=== PATIENT | male | born 1975 | race Caucasian/White ===

== ENCOUNTER 2021-01-10 14:19 | Emergency (ER) | payer OTHER, SELFPAY ==
--- NOTE | ~2021-01-10 | XR_ITS ---
EXAMINATION: XR CHEST CLINICAL INFORMATION: Shortness of breath, wheezing COMPARISON: None TECHNIQUE: 2 views of the chest were obtained. FINDINGS: The lungs are clear. There is no airspace consolidation or groundglass opacity or effusion. No coarsening of the bronchiolar markings. There is good inspiratory effort. The heart is normal in size and the hilar and mediastinal contours are normal. There is gentle dextrocurvature thoracic spine. XR/XR chest 2V IMPRESSION: Unremarkable examination.
[2021-01-10 15:43] VITALS: BP 119/80; PULSE 72; RESP 20; TEMP 36.4; O2SAT 99; BMI 22.6
[2021-01-10 15:53] LABS: MANUAL DIFF FLAG NO
[2021-01-10 15:57] LABS: Basophils Percent Auto 0.4 % (0-2); Eosinophils Absolute Auto 0.2 X10*3/uL (0.0-0.4); Hematocrit 40.1 % (42-52); Hemoglobin 12.7 g/dl (14.0-18.0); Imm Gran Abs Auto 0.02 X10*3/uL (0.00-0.03); Imm Gran Pct Auto 0.4 % (0.0-0.4); Lymphocytes Absolute Auto 1.3 X10*3/uL (1.2-4.9); Lymphocytes Percent Auto 25.3 % (20-40); Mean Corpuscular HGB Conc 31.7 g/dl (31.0-36.0); Mean Corpuscular Hemoglobin 20.8 pg (27.0-33.0); Mean Corpuscular Volume 65.6 fL (80-98); Mean Platelet Volume 11.6 fL (9.4-12.4); Monocytes Absolute Auto 0.5 X10*3/uL (0.1-1.2); Monocytes Percent Auto 9.3 % (2-11); Neutrophils Absolute Auto 3.1 X10*3/uL (2.0-8.3); Neutrophils Percent Auto 61.6 % (45-73); Platelet Count 194 X10*3/uL (160-400); Red Blood Count 6.11 X10*6/uL (4.60-5.80); Red Cell Distribution Width 17.6 % (11.0-16.0); White Blood Count 5.1 X10*3/uL (4.8-10.8)
[2021-01-10 16:29] LABS: Alanine Aminotransferase 16 U/L (0-40); Albumin Level 3.9 g/dL (3.5-5.0); Alkaline Phosphatase 76 U/L (39-117); Anion Gap 9 (12-20); Aspartate Amino Transferase 18 U/L (5-37); Bilirubin Total 0.6 mg/dL (0.0-1.0); Blood Urea Nitrogen 12 mg/dL (9-16); Calcium 9.3 mg/dL (8.4-10.2); Carbon Dioxide 28 mmol/L (22-29); Chloride 110 mmol/L (96-108); Creatinine Clr Calc Pharmacy 105.1; Estimated Glomerular Filt Rate > 60; Glucose Random 103 mg/dL (60-115); Potassium 4.6 mmol/L (3.3-5.1); Sodium 142 mmol/L (135-145); Total Protein 6.8 g/dL (6.5-8.0)
--- NOTE | 2021-01-10 18:16 | ED_ITS ---
HPI - SOB/Dyspnea General Chief Complaint: Dyspnea Stated Complaint: SOB,asthma Time Seen by Provider: 01/10/21 18:16 Source: patient, RN notes reviewed and old records reviewed Mode of arrival: ambulatory Limitations: no limitations History of Present Illness HPI Narrative: 45-year-old male with past medical history of asthma reports that he has been short of breath for last couple days. Tried his inhalers at home without any success. Denies any CP, reports mild shortness of breath and wheezing. Patient denies any seasonal allergies. Patient denies any other symptoms. Speaking in full sentences Related Data Previous Rx's Medication Instructions Recorded albuterol sulfate [ProAir HFA] 2 puff INHALATION Q6H PRN #8.5 g 01/10/21 prednisone 40 mg PO DAILY 5 Days #10 tab 01/10/21 Allergies Allergy/AdvReac Type Severity Reaction Status Date / Time No Known Allergies Allergy Verified 01/10/21 18:20 Review of Systems Review of Systems: Constitutional : No Weight loss, No Fever, No Chills, No Night Sweats, No Fatigue, No Malaise ENT/Mouth : No Hearing loss, No Ear Pain, No Nasal Congestion, No Sinus Pain, No Hoarseness, No sore throat, No Rhinorrhea, No Swallowing Difficulty Eyes: No Eye Pain, No Swelling, No Redness, No Foreign Body, No Discharge, No Vision Changes Cardiovascular : No Chest Pain, No SOB, No Dyspnea on Exertion, No Orthopnea, No Edema, No Palpitations Respiratory : No Cough, No Sputum, Wheezing, No Smoke Exposure, No Dyspnea Gastrointestinal : No Nausea, No Vomiting, No Diarrhea, No Constipation, No abdominal Pain, No Hematochezia, No Melena Genitourinary : no irregular bleeding, No Dysuria, No Urinary Frequency, No Hematuria, No Urinary Incontinence, No Urgency, No Flank Pain, No Urinary Flow Changes, No Hesitancy Musculoskeletal : No joint pain, No Myalgias, No Joint Swelling Skin : No Skin Lesions, No rash Neuro : No Weakness, No Numbness, No Paresthesias, No Loss of Consciousness, No Dizziness, No Headache Psych : No Anxiety/Panic, No Depression, No SI/HI/AH/VH, No Social Issues, Heme/Lymph: No Bruising, No Bleeding,No Lymphadenopathy Endocrine : No Polyuria, No Polydipsia, No Temperature Intolerance Yes all other systems are reviewed and are negative PMFSH Social History Social History Advance Directives: No Advance Directives Information Provided: Yes Physical Exam Vital Signs: Vital Signs: Last Vital Signs Temp 97.6 F 01/10/21 15:43 Pulse 72 01/10/21 19:27 Resp 20 01/10/21 15:43 BP 119/80 01/10/21 15:43 Pulse Ox 99 01/10/21 15:43 Body Mass Index 22.6 Const: General: healthy appearing, no acute distress and well developed Nutritional Appearance: well nourished Orientation/consciousness: patient oriented x3 Neck: Neck: Yes normal visual inspection, Yes full ROM and Yes trachea midline Thyroid: Thyroid normal Resp: Effort & Inspection: normal respiratory effort and able to speak in complete sentences Auscultation: wheezes (Inspiratory and expiratory) Cardio: Rate: regular rate Rhythm: regular rhythm GI: Inspection: Yes normal to inspection and No distended Palpation (GI): No hepatosplenomegaly present Auscultation: normal bowel sounds Skin: General skin exam: elasticity normal, turgor normal and dry skin Neuro: General: patient oriented x3 Course Course Course Narrative: 45-year-old male with past medical history of asthma. Took his inhaler at home without any help. Patient denies any SOB, reports to be wheezing. No recent exposures to COVID. Denies any fever or chills. I will give him nebulizer treatment and prednisone. Lab work negative for leukocytosis. Reevaluation(s) Reevaluation #1: Patient re-evaluated after treatment. He reports that he is feeling much better his lung sounds clear. I will send him home with albuterol inhaler and prednisone. Patient is agreeable to plan of care and verbalizes understanding of instructions. He was given the opportunity to ask questions and all questions answered. MDM - SOB/Dyspnea Lab Data Result diagrams: 01/10/21 15:41 01/10/21 15:41 Labs: Lab Results 01/10/21 01/10/21 Range/Units 15:41 15:41 WBC 5.1 (4.8-10.8) X10*3/uL RBC 6.11 H (4.60-5.80) X10*6/uL Hgb 12.7 L (14.0-18.0) g/dl Hct 40.1 L (42-52) % MCV 65.6 L (80-98) fL MCH 20.8 L (27.0-33.0) pg MCHC 31.7 (31.0-36.0) g/dl RDW 17.6 H (11.0-16.0) % Plt Count 194 (160-400) X10*3/uL MPV 11.6 (9.4-12.4) fL Immature Gran % (Auto) 0.4 (0.0-0.4) % Neut % (Auto) 61.6 (45-73) % Lymph % (Auto) 25.3 (20-40) % [place] % (Auto) 9.3 (2-11) % Eos % (Auto) 3.0 (0-4) % Baso % (Auto) 0.4 (0-2) % Lymph # (Auto) 1.3 (1.2-4.9) X10*3/uL [place] # (Auto) 0.5 (0.1-1.2) X10*3/uL Eos # (Auto) 0.2 (0.0-0.4) X10*3/uL Baso # (Auto) 0.0 (0.0-0.2) X10*3/uL Abs Immat Gran (auto) 0.02 (0.00-0.03) X10*3/uL Absolute Neuts (auto) 3.1 (2.0-8.3) X10*3/uL Absolute Nucleated RBC 0.000 (0.0-0.012) X10*3/uL Nucleated RBC % (auto) 0.0 (0.0-0.2) /100WBC Sodium 142 (135-145) mmol/L Potassium 4.6 (3.3-5.1) mmol/L Chloride 110 H (96-108) mmol/L Carbon Dioxide 28 (22-29) mmol/L Anion Gap 9 L (12-20) BUN 12 (9-16) mg/dL Creatinine 0.78 (0.5-1.4) mg/dL Estim Creat Clear Calc 105.1 Estimated GFR > 60 Random Glucose 103 (60-115) mg/dL Calcium 9.3 (8.4-10.2) mg/dL Total Bilirubin 0.6 (0.0-1.0) mg/dL AST 18 (5-37) U/L ALT 16 (0-40) U/L Alkaline Phosphatase 76 (39-117) U/L Total Protein 6.8 (6.5-8.0) g/dL Albumin 3.9 (3.5-5.0) g/dL Imaging Data Chest x-ray: Radiologist's impression: FINDINGS: The lungs are clear. There is no airspace consolidation or groundglass opacity or effusion. No coarsening of the bronchiolar markings. There is good inspiratory effort. The heart is normal in size and the hilar and mediastinal contours are normal. There is gentle dextrocurvature thoracic spine. XR/XR chest 2V IMPRESSION: Unremarkable examination. Discharge Plan Discharge Clinical Impression: Asthma with exacerbation Patient Disposition: Home, Self-Care Instructions: Asthma (ED) Additional Instructions: You were seen here today for asthma exacerbation. You were given albuterol updraft as well as prednisone. I will be sending you home with prednisone. Please take it 2 every day for the next 5 days. Please use your rescue inhaler and your nebulizer at home. Your blood work and your chest x-ray were normal. Please follow-up with your primary care physician in 3 days. You may return to emergency department if his symptoms return or if you experience any other concerning symptoms. Prescriptions: New prednisone 20 mg tablet 40 mg PO DAILY 5 Days Qty: 10 RF: 0 albuterol sulfate [ProAir HFA] 90 mcg/actuation HFA aerosol inhaler 2 puff inhalation Q6H PRN (Reason: shortness of breath or wheezing) Qty: 8.5 RF: 0 Stand Alone Forms: Work/School Release Interventions: ED Discharge Assessment Last Done: 01/10/21 20:04 Discharge Date/Time: 01/10/21 20:05
[2021-01-10] MEDS: predniSONE 20 MG TABLET 40 MG PO (18:56)
--- NOTE | 2021-01-10 19:20 | PC.NURSE ---
PT MED WITH PREDNISONE. CALLED RESP X 2 FOR UPDRAFT. PT AND FAMILY GIVEN COFFEE AND SANDWICHES.
[2021-01-10] MEDS: Albuterol/Iprat 2.5/0.5MG 3 ML AMPUL.NEB INHALE (19:26)
[2021-01-10 19:27] VITALS: PULSE 72; O2SAT 99
== END 2021-01-10 20:05 | disposition home or self-care (01) ==
PROVIDERS: Emergency Provider Internal Medicine
DX: J45.901 Unspecified asthma with (acute) exacerbation (principal); Z79.899 Other long term (current) drug therapy
CPT/HCPCS: 36415; 71046; 80053; 85025; 94640; 99284

== ENCOUNTER 2021-02-02 16:30 | Emergency (ER) | payer OTHER, SELFPAY ==
--- NOTE | ~2021-02-02 | XR_ITS ---
EXAMINATION: XR chest 1V CLINICAL INFORMATION: Asthma COMPARISON: No prior chest x-ray available in our system for comparison at the time of this dictation. TECHNIQUE: XR chest 1V Lungs and Mary: Both lungs are clear. Pleura: Normal. Costophrenic angles are sharp. No pneumothorax. Heart: The heart is normal in size. Mediastinum: The mediastinum is within normal limits.. Bones: An old left posterior lower rib fractures unchanged. XR/XR chest 1V IMPRESSION: No radiographic evidence of acute cardiopulmonary disease.
[2021-02-02 16:42] VITALS: BP 129/66; PULSE 100; RESP 16; TEMP 36.9; O2SAT 96; BMI 22.6
--- NOTE | 2021-02-02 19:20 | ED.ASTHMA ---
HPI - Asthma General Chief Complaint: Asthma Stated Complaint: asthma Time Seen by Provider: 02/02/21 19:20 Source: patient Mode of arrival: ambulatory Limitations: no limitations History of Present Illness HPI Narrative: Patient history of asthma/COPD been coughing a lot for last few days with shortness of breath no fever no chills mucopurulent phlegm greenish in color no chest pain no leg swelling patient has similar episodes multiple times in a year patient been using inhaler at home without much relief patient has not received COVID-19 vaccine yet Related Data Previous Rx's Medication Instructions Recorded albuterol sulfate [ProAir HFA] 2 puff INHALATION Q6H PRN #8.5 g 01/10/21 prednisone 40 mg PO DAILY 5 Days #10 tab 01/10/21 albuterol sulfate 2.5 mg INHALATION Q4-6H PRN #90 ml 02/02/21 albuterol sulfate [ProAir HFA] 2 puff INHALATION Q4-6H PRN #8.5 g 02/02/21 doxycycline hyclate 100 mg PO BID #20 cap 02/02/21 nebulizers [Compact Ultrasonic #1 ea 02/02/21 Nebulizer] prednisone 40 mg PO DAILY #10 tab 02/02/21 Allergies Allergy/AdvReac Type Severity Reaction Status Date / Time No Known Allergies Allergy Verified 01/10/21 18:20 Review of Systems Review of Systems: Yes all other systems are reviewed and are negative PMFSH Past Medical History Medical History (Updated 02/02/21 @ 22:05 by Gonzales Jaffe MD) Asthma Social History Social History Advance Directives: No Advance Directives Information Provided: No Physical Exam Vital Signs: Vital Signs: Last Vital Signs Temp 98.7 F 02/02/21 19:51 Pulse 78 02/02/21 21:16 Resp 18 02/02/21 19:51 BP 108/67 02/02/21 19:51 Pulse Ox 98 02/02/21 19:51 Body Mass Index 22.6 Appearance: Alert. Oriented X3. No acute distress. Eyes: PERRLA, No Nystagmus ENT: Pharynx normal. Oral Mucosa moist Neck: Normal inspection. Neck supple. CVS: Normal heart rate and rhythm. Pulses normal. Respiratory: No respiratory distress. Equal air entry bilateral, bilateral diffuse wheezing and rhonchi and no crackles Abdomen: Soft and nontender. Bowel sounds are present, no mass palpable, no CVA tenderness Skin: Skin warm and dry. Normal skin color. Normal skin turgor. Extremities: No lower extremity edema. No calf tenderness Neuro: Oriented X 3. No motor deficit. MDM - Asthma MDM Narrative Medical decision making narrative: Patient feeling much better after nebulizing treatment saturating 96- 98 % will discharge patient home on nebulizer prednisone and doxycycline Lab Data Attestation: I reviewed the patient's lab results. Labs: Lab Results 02/02/21 Range/Units 19:34 COVID-19 ([facility]) Negative (Negative) COVID-19 Clin Com See Note Discharge Plan Discharge Clinical Impression: Acute asthmatic bronchitis Patient Disposition: Home, Self-Care Instructions: Acute Bronchitis (ED) Additional Instructions: Continues inhaler as prescribed. Take prednisone and doxycycline as prescribed. Follow-up with your PCP Prescriptions: New albuterol sulfate [ProAir HFA] 90 mcg/actuation HFA aerosol inhaler 2 puff inhalation Q4-6H PRN (Reason: shortness of breath or wheezing) Qty: 8.5 RF: 0 albuterol sulfate 2.5 mg /3 mL (0.083 %) solution for nebulization 2.5 mg inhalation Q4-6H PRN (Reason: shortness of breath or wheezing) Qty: 90 RF: 0 prednisone 20 mg tablet 40 mg PO DAILY Qty: 10 RF: 0 doxycycline hyclate 100 mg capsule 100 mg PO BID Qty: 20 RF: 0 (DME) Compact Ultrasonic Nebulizer Misc See Rx Instructions .ROUTE .MEDSUPPLY Qty: 1 RF: 0 No Action prednisone 20 mg tablet 40 mg PO DAILY 5 Days Qty: 10 RF: 0 albuterol sulfate [ProAir HFA] 90 mcg/actuation HFA aerosol inhaler 2 puff inhalation Q6H PRN (Reason: shortness of breath or wheezing) Qty: 8.5 RF: 0 Stand Alone Forms: Work/School Release
[2021-02-02] MEDS: dexAMETHasone 2 MG TABLET 10 MG PO (19:42)
[2021-02-02] MEDS: guaiFEN/Codeine SF 200/20/10ML 10 ML LIQUID PO (19:42)
[2021-02-02 19:51] VITALS: BP 108/67; PULSE 87; RESP 18; TEMP 37.1; O2SAT 98
[2021-02-02] MEDS: Albuterol Sulfate (0.083%) 2.5 MG/3 ML VIAL.NEB 5 MG INHALE (19:59)
[2021-02-02] MEDS: Albuterol/Iprat 2.5/0.5MG 3 ML AMPUL.NEB INHALE (20:00)
[2021-02-02 20:01] VITALS: PULSE 80; O2SAT 96
[2021-02-02 20:12] LABS: COVID-19 Test Negative (Negative)
[2021-02-02] MEDS: Albuterol Sulfate (0.083%) 2.5 MG/3 ML VIAL.NEB 7.5 MG INHALE (21:14)
[2021-02-02 21:16] VITALS: PULSE 78; O2SAT 98
== END 2021-02-02 22:12 | disposition home or self-care (01) ==
PROVIDERS: Emergency Provider Internal Medicine; PCP Physician Assistant
DX: J45.909 Unspecified asthma, uncomplicated (principal); Z79.899 Other long term (current) drug therapy; Z20.822 Contact with and (suspected) exposure to COVID-19
CPT/HCPCS: 36415; 71045; 87635; 94640; 94644; 94645; 99284; 99285; J8540

== ENCOUNTER 2021-03-07 20:52 | Emergency (ER) | payer OTHER, SELFPAY ==
--- NOTE | ~2021-03-07 | CT_ITS ---
EXAMINATION: CT ELBOW, LEFT WITH CONTRAST CLINICAL INFORMATION: Evaluate for abscess versus cellulitis. Left elbow swelling. COMPARISON: None TECHNIQUE: Multidetector volumetric imaging of the left elbow performed after administration of 85 mL of Omnipaque 350 IV contrast. Coronal and sagittal reformatted images are obtained and reviewed. This CT examination was performed using dose optimization techniques as appropriate, variously including the following: *Automated exposure control *Adjustment of mA and/or kV according to patient size (this includes techniques or standardized protocols for targeted exams where dose is matched to indication/reason for exam; i.e. extremities or head) *Use of iterative reconstruction technique DLP: 161 mGy-cm FINDINGS: There is no fracture or dislocation. Alignment is anatomic at the elbow. No cortical disruption. No erosion. There is prominent soft tissue swelling at the dorsal aspect of the elbow. Mild skin thickening. There is no drainable fluid collection identified. No elbow joint effusion seen. The vasculature appears unremarkable. There is a radiopaque foreign body at the antecubital fossa measuring 0.8 cm. This could be a clip. CT/CT elbow LT w con IMPRESSION: Soft tissue swelling at the dorsal aspect of the elbow with mild skin thickening, suggestive of cellulitis. No drainable fluid collection.
[2021-03-07 21:01] VITALS: BP 114/71; PULSE 90; RESP 16; TEMP 36.8; O2SAT 97; BMI 23.3
[2021-03-07 22:28] LABS: MANUAL DIFF FLAG NO
[2021-03-07 22:32] LABS: Basophils Percent Auto 0.4 % (0-2); Eosinophils Absolute Auto 0.3 X10*3/uL (0.0-0.4); Eosinophils Percent Auto 4.6 % (0-4); Hematocrit 39.3 % (42-52); Hemoglobin 12.5 g/dl (14.0-18.0); Imm Gran Abs Auto 0.03 X10*3/uL (0.00-0.03); Imm Gran Pct Auto 0.4 % (0.0-0.4); Lymphocytes Absolute Auto 1.6 X10*3/uL (1.2-4.9); Mean Corpuscular HGB Conc 31.8 g/dl (31.0-36.0); Mean Corpuscular Volume 66.1 fL (80-98); Monocytes Absolute Auto 0.7 X10*3/uL (0.1-1.2); Monocytes Percent Auto 9.6 % (2-11); Neutrophils Absolute Auto 4.3 X10*3/uL (2.0-8.3); Platelet Count 155 X10*3/uL (160-400); Red Blood Count 5.95 X10*6/uL (4.60-5.80); Red Cell Distribution Width 17.2 % (11.0-16.0); White Blood Count 6.9 X10*3/uL (4.8-10.8)
[2021-03-07 22:45] LABS: Anion Gap 11 (12-20); Blood Urea Nitrogen 11 mg/dL (9-16); Calcium 8.9 mg/dL (8.4-10.2); Carbon Dioxide 27 mmol/L (22-29); Chloride 108 mmol/L (96-108); Creatinine Clr Calc Pharmacy 71.5; Estimated Glomerular Filt Rate > 60; Glucose Random 60 mg/dL (60-115); Potassium 4.4 mmol/L (3.3-5.1); Sodium 142 mmol/L (135-145)
[2021-03-07 23:58] LABS: C Reactive Protein 2.98 mg/dL (< or = 0.50)
[2021-03-08 00:32] LABS: Erythrocyte Sedimentation Rate 3 MM/HR (0-15)
[2021-03-08] MEDS: iohexoL 350 MG/ML 100 ML INFUS..BTL 70 ML IV (00:32)
[2021-03-08] MEDS: Ketorolac Tromethamine 15 MG/ML VIAL IVPUSH (00:34)
--- NOTE | 2021-03-08 00:38 | ED_ITS ---
HPI - Skin/Abscess/Foreign Bdy General Chief complaint: Skin/Abscess/Foreign Body Stated complaint: ABSCESS? Time Seen by Provider: 03/07/21 23:38 Source: patient Mode of arrival: ambulatory History of Present Illness HPI narrative: 45-year-old male with a past medical history of asthma presenting to the ED complaining of erythematous, swollen, painful right elbow since yesterday Denies known injury/trauma or falls, known tick or insect bites, fever, chills, IVDA complaint: abscess/boil Related Data Previous Rx's Medication Instructions Recorded albuterol sulfate 90 mcg/actuation 2 puff INHALATION Q6H PRN #8.5 g 01/10/21 aerosol inhaler (ProAir HFA) prednisone 20 mg tablet 40 mg PO DAILY 5 Days #10 tab 01/10/21 albuterol sulfate 2.5 mg INHALATION Q4-6H PRN #90 ml 02/02/21 albuterol sulfate 90 mcg/actuation 2 puff INHALATION Q4-6H PRN #8.5 g 02/02/21 aerosol inhaler (ProAir HFA) doxycycline hyclate 100 mg capsule 100 mg PO BID #20 cap 02/02/21 nebulizers (Compact Ultrasonic #1 ea 02/02/21 Nebulizer) prednisone 20 mg tablet 40 mg PO DAILY #10 tab 02/02/21 acetaminophen 500 mg tablet 500 mg PO Q6H PRN #20 tab 03/08/21 (Tylenol Extra Strength) cephalexin 500 mg capsule 500 mg PO QID 7 Days #28 cap 03/08/21 doxycycline hyclate 100 mg tablet 100 mg PO BID 7 Days #14 tab 03/08/21 naproxen 500 mg tablet 500 mg PO BID PRN 10 Days #20 tab 03/08/21 Allergies Allergy/AdvReac Type Severity Reaction Status Date / Time No Known Allergies Allergy Verified 01/10/21 18:20 Review of Systems Review of Systems: Constitutional: No Fever, No Chills, No Fatigue, No Malaise Cardiovascular: No Chest Pain, No SOB Respiratory: No Cough, No Dyspnea Gastrointestinal: No Nausea, No Vomiting, No Abdominal pain Musculoskeletal: + joint pain, No Myalgias, + Joint Swelling Skin: + Skin Lesions, No rash Neuro: No Weakness, No Numbness, No Paresthesias Yes all other systems are reviewed and are negative PMFSH Past Medical History Attestation statement: The following information was validated with the patient. Medical History (Updated 03/08/21 @ 01:00 by KATERINA Shook) Asthma Social History Social History Advance Directives: No Advance Directives Information Provided: No Physical Exam Vital Signs: Vital Signs: Last Vital Signs Temp 98.2 F 03/07/21 21:01 Pulse 90 03/07/21 21:01 Resp 16 03/07/21 21:01 BP 114/71 03/07/21 21:01 Pulse Ox 97 03/07/21 21:01 Body Mass Index 23.3 Const: General: cooperative, healthy appearing and no acute distress Orientation/consciousness: patient oriented x3 Limitations: no limitations HENMT: Head: Yes normal to inspection Ears: hearing grossly normal bilaterally General nose exam: Normal external nose present Face and sinus: Yes normal facial exam Eyes: General: appearance normal, both eyes and all related structures EOM: EOMs intact bilaterally Neck: Neck: Yes normal visual inspection Resp: Effort & Inspection: normal respiratory effort and no respiratory distress Cardio: Rate: regular rate Peripheral pulses: radial pulses present Skin: Other: Left elbow with notable erythema and mild swelling. Tender to palpation. Pinpoint area of fluctuance noted to center of olecranon. No induration. No streaking. Warm to touch Wounds: no wounds Neuro: General: patient oriented x3 Gait exam (Neuro): Normal gait present Extrem: Other: FROM left elbow intact. NV intact Course Course Course Narrative: -no leukocytosis. H&H at patient's baseline -ESR negative, CRP mildly elevated CT elbow LT w con IMPRESSION: Soft tissue swelling at the dorsal aspect of the elbow with mild skin thickening, suggestive of cellulitis. No drainable fluid collection.? >> patient given 1st dose of doxycycline and Keflex in the ED. Worrisome signs and symptoms and strict return precautions discussed. He verbalized understand ing feel safe for discharge home MDM - Skin/Abscess/Foreign Bdy MDM Narrative Medical decision making narrative: 45-year-old male with a past medical history of asthma presenting to the ED complaining of erythematous, swollen, painful right elbow since yesterday. On exam VSS, physical exam as above concerning for cellulitis vs possible abscess although does not appear drainable. Lower concern for septic joint/arthritis as patient has FROM. Plan: Labs, ESR/CRP, CT elbow Medical Records Attestation: I reviewed the patient's medical records. Lab Data Attestation: I reviewed the patient's lab results. Result diagrams: 03/07/21 22:15 03/07/21 22:15 Labs: Lab Results 03/07/21 03/07/21 03/07/21 Range/Units 22:15 22:15 22:15 WBC 6.9 (4.8-10.8) X10*3/uL RBC 5.95 H (4.60-5.80) X10*6/uL Hgb 12.5 L (14.0-18.0) g/dl Hct 39.3 L (42-52) % MCV 66.1 L (80-98) fL MCH 21.0 L (27.0-33.0) pg MCHC 31.8 (31.0-36.0) g/dl RDW 17.2 H (11.0-16.0) % Plt Count 155 L (160-400) X10*3/uL MPV TNP Immature Gran % (Auto) 0.4 (0.0-0.4) % Neut % (Auto) 62.0 (45-73) % Lymph % (Auto) 23.0 (20-40) % [place] % (Auto) 9.6 (2-11) % Eos % (Auto) 4.6 H (0-4) % Baso % (Auto) 0.4 (0-2) % Lymph # (Auto) 1.6 (1.2-4.9) X10*3/uL [place] # (Auto) 0.7 (0.1-1.2) X10*3/uL Eos # (Auto) 0.3 (0.0-0.4) X10*3/uL Baso # (Auto) 0.0 (0.0-0.2) X10*3/uL Abs Immat Gran (auto) 0.03 (0.00-0.03) X10*3/uL Absolute Neuts (auto) 4.3 (2.0-8.3) X10*3/uL Absolute Nucleated RBC 0.000 (0.0-0.012) X10*3/uL Nucleated RBC % (auto) 0.0 (0.0-0.2) /100WBC ESR 3 (0-15) MM/HR Sodium 142 (135-145) mmol/L Potassium 4.4 (3.3-5.1) mmol/L Chloride 108 (96-108) mmol/L Carbon Dioxide 27 (22-29) mmol/L Anion Gap 11 L (12-20) BUN 11 (9-16) mg/dL Creatinine 1.11 (0.5-1.4) mg/dL Estim Creat Clear Calc 71.5 Estimated GFR > 60 Random Glucose 60 D (60-115) mg/dL Calcium 8.9 (8.4-10.2) mg/dL C-Reactive Protein 2.98 H (< or = 0.50) mg/dL Discharge Plan Discharge Clinical Impression: Cellulitis of left elbow Patient Disposition: Home, Self-Care Instructions: Cellulitis (ED) Additional Instructions: Your CAT scan shows cellulitis of your left elbow, no drainable collection/abscess Doxycycline and Keflex for antibiotics, please take as prescribed It is very important that you follow-up with your primary care doctor in the next couple days If he develop fever, chills, red streaking up your arm please return to the ED immediately Prescriptions: New acetaminophen [Tylenol Extra Strength] 500 mg tablet 500 mg PO Q6H PRN (Reason: pain or fever) Qty: 20 RF: 0 cephalexin 500 mg capsule 500 mg PO QID 7 Days Qty: 28 RF: 0 doxycycline hyclate 100 mg tablet 100 mg PO BID 7 Days Qty: 14 RF: 0 naproxen 500 mg tablet 500 mg PO BID PRN (Reason: pain) 10 Days Qty: 20 RF: 0 No Action prednisone 20 mg tablet 40 mg PO DAILY 5 Days Qty: 10 RF: 0 albuterol sulfate [ProAir HFA] 90 mcg/actuation HFA aerosol inhaler 2 puff inhalation Q6H PRN (Reason: shortness of breath or wheezing) Qty: 8.5 RF: 0 albuterol sulfate [ProAir HFA] 90 mcg/actuation HFA aerosol inhaler 2 puff inhalation Q4-6H PRN (Reason: shortness of breath or wheezing) Qty: 8.5 RF: 0 albuterol sulfate 2.5 mg /3 mL (0.083 %) solution for nebulization 2.5 mg inhalation Q4-6H PRN (Reason: shortness of breath or wheezing) Qty: 90 RF: 0 prednisone 20 mg tablet 40 mg PO DAILY Qty: 10 RF: 0 doxycycline hyclate 100 mg capsule 100 mg PO BID Qty: 20 RF: 0 (DME) Compact Ultrasonic Nebulizer Misc See Rx Instructions .ROUTE .MEDSUPPLY Qty: 1 RF: 0 Referrals: Physician,Unknown [Primary Care Provider] - 2 days
[2021-03-08] MEDS: cephALEXin 500 MG CAPSULE PO (01:19)
== END 2021-03-09 01:11 | disposition home or self-care (01) ==
PROVIDERS: Physician Assistant; Emergency Provider Emergency Medicine
DX: L03.114 Cellulitis of left upper limb (principal); M25.521 Pain in right elbow
CPT/HCPCS: 36415; 73201; 80048; 85025; 85652; 86140; 96374; 99283; 99284; J1885; Q9967

== ENCOUNTER 2021-12-09 15:23 | Emergency (ER) | payer OTHER, SELFPAY ==
--- NOTE | ~2021-12-09 | XR_ITS ---
EXAMINATION: X-RAY HAND AND WRIST, RIGHT CLINICAL INFORMATION: Pain/injury COMPARISON: None TECHNIQUE: 3 views of the right hand and wrist FINDINGS: There is mild deformity of the fifth metacarpal bone, which may be due to prior trauma. On the lateral view, there is bony prominence along the dorsal aspect of the articulation between the third metacarpal bone and capitate, that may also be due to prior trauma, however acute fracture or dislocation is not excluded. There is mild tenting of the overlying soft tissues. The remainder of the bones are intact. Joint spaces are preserved. XR/XR hand wrist RT IMPRESSION: Bony prominence along the dorsal aspect of the articulation between the third metacarpal bone and capitate, that may be due to prior trauma, however acute injury is not excluded. Recommend an apical correlation. Consider further evaluation with CT. Prior trauma to the fifth metacarpal bone.
[2021-12-09 16:38] VITALS: BP 138/74; PULSE 79; RESP 18; TEMP 36.4; O2SAT 96; BMI 25.8
--- NOTE | 2021-12-09 18:28 | ED.EXTPRO ---
HPI - Extremity Problem General Chief complaint: Extremity Injury, Upper Stated complaint: arm injury Time Seen by Provider: 12/09/21 18:28 Source: patient Mode of arrival: ambulatory Limitations: no limitations History of Present Illness HPI Narrative: Patient is a 46 year old male presenting to the emergency department today with right wrist pain. Patient states that he punched his car radio and is now having right wrist pain. Patient denies any dizziness, lightheadedness, abdominal pain, nausea, vomiting, fever, chills, blurry vision, double vision, loss of vision, chest pain, difficulty breathing, shortness of breath, back pain, night sweats, pain with urination, increased urinary frequency, increased urinary urgency, blood in his urine or stool, syncope or a near syncopal episode, bowel incontinence, bladder incontinence, bowel retention, bladder retention, or any other complaints at this time. MD Complaint: extremity pain Onset (ago): hour(s) Pain Consistency: constant Location: right Severity scale (1-10): 3 Quality: dull Radiation: none Relieving factors: nothing Exacerbating factors: nothing Associated symptoms: denies other symptoms Related Data Previous Rx's Medication Instructions Recorded albuterol sulfate 90 mcg/actuation 2 puff INHALATION Q6H PRN #8.5 g 01/10/21 aerosol inhaler (ProAir HFA) prednisone 20 mg tablet 40 mg PO DAILY 5 Days #10 tab 01/10/21 albuterol sulfate 2.5 mg (3 mL) INHALATION Q4-6H PRN 02/02/21 #90 ml albuterol sulfate 90 mcg/actuation 2 puff INHALATION Q4-6H PRN #8.5 g 02/02/21 aerosol inhaler (ProAir HFA) doxycycline hyclate 100 mg capsule 100 mg PO BID #20 cap 02/02/21 nebulizers (Compact Ultrasonic #1 ea 02/02/21 Nebulizer) prednisone 20 mg tablet 40 mg PO DAILY #10 tab 02/02/21 acetaminophen 500 mg tablet 500 mg PO Q6H PRN #20 tab 03/08/21 (Tylenol Extra Strength) cephalexin 500 mg capsule 500 mg PO QID 7 Days #28 cap 03/08/21 doxycycline hyclate 100 mg tablet 100 mg PO BID 7 Days #14 tab 03/08/21 naproxen 500 mg tablet 500 mg PO BID PRN 10 Days #20 tab 03/08/21 Allergies Allergy/AdvReac Type Severity Reaction Status Date / Time No Known Allergies Allergy Verified 12/09/21 16:37 Review of Systems Constitutional: Constitutional: Reports no additional constitutional complaints, Denies chills, Denies fever(s) and Denies night sweats Eyes: Eyes: Reports no additional eye complaints, Denies blurry vision, Denies change in vision, Denies diplopia, Denies eye discharge, Denies loss of vision and Denies eye pain ENT: Denies dizziness Cardiovascular: Cardiovascular: Reports no additional cardiovascular complaints, Denies chest pain, Denies lightheadedness, Denies Loss of Consciousness and Denies dyspnea Respiratory: Respiratory: Reports no additional respiratory complaints and Denies dyspnea Gastrointestinal: Gastrointestinal: Reports no additional gastrointestinal complaints, Denies abdominal pain, Denies melena, Denies hematochezia, Denies change in bowel habits and Denies change in stool character Genitourinary: Genitourinary: Reports no additional male genitourinary complaints, Denies hematuria, Denies oliguria, Denies difficulty urinating, Denies dysuria, Denies urinary frequency, Denies urinary hesitancy, Denies urinary incontinence and Denies urinary urgency Musculoskeletal: Musculoskeletal: Reports no additional musculoskeletal complaints, Denies numbness and Denies tingling Comments: right wrist pain Neurologic: Denies dizziness, Denies loss of vision, Denies numbness and Denies tingling Psychiatric: Psychiatric: Reports no additional psychiatric complaints Endocrine: Endocrine: Reports no additional endocrine complaints Hematologic/Lymphatic: Hematologic/Lymphatic: Reports no additional hematologic/lymphatic complaints Allergic/Immunologic: Allergic/Immunologic: Reports no additional allergic/immunologic complaints [facility] Past Medical History Attestation statement: The following information was validated with the patient. Source: old records reviewed Medical History Asthma Social History Social History Advance Directives: No Advance Directives Information Provided: No Physical Exam Vital Signs: Vital Signs: Last Vital Signs Temp 97.5 F 12/09/21 16:38 Pulse 79 12/09/21 16:38 Resp 18 12/09/21 16:38 BP 138/74 12/09/21 16:38 Pulse Ox 96 12/09/21 16:38 BMI result Body Mass Index 25.8 Const: General: cooperative, no acute distress, alert and awake Nutritional Appearance: well nourished Orientation/consciousness: patient oriented x3 Limitations: no limitations HEENT: Head: Yes normal to inspection and Yes atraumatic Ears: hearing grossly normal bilaterally and external ears normal General nose exam: Normal external nose present, no nasal discharge noted and no epistaxis Face and sinus: Yes normal facial exam, No abrasion and No laceration Mouth: Normal oral and palatal mucosa present, no drooling and no muffled voice Eyes: General: appearance normal, both eyes and all related structures Periorbital: periorbital findings normal Eyelids: Yes eyelids normal Conjunctivae: conjunctivae normal Pupils: Equal, round and reactive pupils present EOM: EOMs intact bilaterally Neck: Neck: Yes normal visual inspection, Yes full ROM and Yes no lymphadenopathy Chest: Chest palpation & inspection: normal inspection of the chest Resp: Effort & Inspection: normal respiratory effort and able to speak in complete sentences Auscultation: clear to auscultation bilaterally Cardio: Rate: regular rate Rhythm: regular rhythm GI: Inspection: Yes normal to inspection Neuro: General: patient oriented x3 and moves all extremities Cranial nerves: Yes Equal, round and reactive pupils present Cognition (Neuro): normal cognition Motor exam (neuro): 5/5 motor strength present throughout Sensory Exam: Normal double simultaneous stimulation for sensation Coordination: [id number] test normal Extrem: General: Yes normal to inspection, Yes full ROM and Yes capillary refill normal Psych: Appearance: grossly normal Mental Status: mental status grossly normal Affect: normal affect Attitude: cooperative Thought process: Normal thought process present Thought content: Normal thought content present Insight: Good insight present (Psych) MDM - Extremity (Nontraumatic) MDM Narrative Medical decision making narrative: Patient is a 46 year old male presenting to the emergency department today with right wrist pain. Patient's physical exam was unremarkable. Patient's right wrist x-ray showed no acute process. I explained my physical exam findings as well as all test results to the patient. I answered all questions asked by the patient. Patient's wrist was placed in a splint, without incident. PMS was in tact prior to and after splint placement. I stressed the importance of the patient taking his medication as prescribed. I stressed the importance of the patient following up with his primary care provider and an orthopedist. I stressed the importance of the patient returning to the emergency department immediately if his symptoms were to worsen or if he were to develop any dizziness, shortness of breath, difficulty breathing, chest pain, blurry vision, loss of vision, nausea, vomiting, abdominal pain, fever, chills, back pain, or any other complaints. Patient verbalized agreement and understanding with this treatment plan and discharge. Differential Diagnosis Differential diagnosis: Unlikely gout (sprain wrist) Medical Records Attestation: I reviewed the patient's medical records. Imaging Data Right wrist x-ray: Attestation: I personally reviewed and interpreted this imaging study as follows: My impression: No acute process. Previous trauma noted. Radiologist's impression: EXAMINATION: X-RAY HAND AND WRIST, RIGHT CLINICAL INFORMATION: Pain/injury? COMPARISON: None? TECHNIQUE: 3 views of the right hand and wrist? FINDINGS: There is mild deformity of the fifth metacarpal bone, which may be due to prior trauma. On the lateral view, there is bony prominence along the dorsal aspect of the articulation between the third metacarpal bone and capitate, that may also be due to prior trauma, however acute fracture or dislocation is not excluded. There is mild tenting of the overlying soft tissues. The remainder of the bones are intact. Joint spaces are preserved.? XR/XR hand wrist RT IMPRESSION: Bony prominence along the dorsal aspect of the articulation between the third metacarpal bone and capitate, that may be due to prior trauma, however acute injury is not excluded. Recommend an apical correlation. Consider further evaluation with CT. ? Prior trauma to the fifth metacarpal bone. Dictated By: Kate Haley MD Signed By: Electronically signed by Kate Haley MD 12/09/21 1835 Procedures Orthopedic Splinting/Casting Injury #1: Side: right Upper Extremity Injury Location: wrist Upper Extremity Immobilizer: thumb spica Discharge Plan Discharge Clinical Impression: Sprain of wrist Patient Disposition: Home, Self-Care Instructions: Wrist Injury (ED) Additional Instructions: Follow up with your primary care provider and an orthopedist. Return to the emergency department immediately if your symptoms worsen or if you develop any dizziness, shortness of breath, difficulty breathing, chest pain, blurry vision, loss of vision, nausea, vomiting, abdominal pain, fever, chills, back pain, or any other complaints. Prescriptions: No Action prednisone 20 mg tablet 40 mg PO DAILY 5 Days Qty: 10 0RF albuterol sulfate [ProAir HFA] 90 mcg/actuation HFA aerosol inhaler 2 puff inhalation Q6H PRN (Reason: shortness of breath or wheezing) Qty: 8.5 0RF albuterol sulfate [ProAir HFA] 90 mcg/actuation HFA aerosol inhaler 2 puff inhalation Q4-6H PRN (Reason: shortness of breath or wheezing) Qty: 8.5 0RF albuterol sulfate 2.5 mg /3 mL (0.083 %) solution for nebulization 2.5 mg inhalation Q4-6H PRN (Reason: shortness of breath or wheezing) Qty: 90 0RF prednisone 20 mg tablet 40 mg PO DAILY Qty: 10 0RF doxycycline hyclate 100 mg capsule 100 mg PO BID Qty: 20 0RF (DME) Compact Ultrasonic Nebulizer Misc See Rx Instructions .ROUTE .MEDSUPPLY Qty: 1 0RF Rx Instructions: As directed acetaminophen [Tylenol Extra Strength] 500 mg tablet 500 mg PO Q6H PRN (Reason: pain or fever) Qty: 20 0RF cephalexin 500 mg capsule 500 mg PO QID 7 Days Qty: 28 0RF doxycycline hyclate 100 mg tablet 100 mg PO BID 7 Days Qty: 14 0RF naproxen 500 mg tablet 500 mg PO BID PRN (Reason: pain) 10 Days Qty: 20 0RF [place] [facility] [place] [facility] [place] [facility] [place] [facility] [facility] [facility] [place] [facility] [facility] [place] [facility] [Provider Group] Interventions: ED Discharge Assessment Last Done: 12/09/21 19:13 Discharge Date/Time: 12/09/21 19:14 Print Language: Thai
== END 2021-12-09 19:14 | disposition home or self-care (01) ==
PROVIDERS: Emergency Provider Emergency Medicine
DX: S63.501A Unspecified sprain of right wrist, initial encounter (principal); Y29.XXXA Contact with blunt object, undetermined intent, initial encounter; Y93.9 Activity, unspecified; Y92.9 Unspecified place or not applicable; Y99.9 Unspecified external cause status; Z79.899 Other long term (current) drug therapy
CPT/HCPCS: 29125; 73110; 73130; 99283

== ENCOUNTER 2022-08-09 15:24 | Emergency (ER) | payer OTHER, SELFPAY ==
--- NOTE | ~2022-08-09 | XR_ITS ---
EXAMINATION: XR hand wrist RT, XR hand wrist LT CLINICAL INFORMATION: Reason for Exam Right wrist pain after fall COMPARISON: Right hand radiographs 12/09/2021 TECHNIQUE: 3 views both hands and scaphoid views both wrists FINDINGS: Right hand/wrist: Mild deformity of the fifth metacarpal consistent with prior healed fracture. No acute fracture or dislocation. Prominent dorsal proliferative bone/carpal bossing at the dorsal aspect of the third carpometacarpal joint again noted. The joint spaces throughout the hand and wrist appear maintained. No osteophytes or erosions. Left hand/wrist: Healed fracture deformity of the thumb proximal phalanx. Mild deformity with chronic proliferative bone at the radial head/neck of the first metacarpal consistent with remote healed injury. No acute fracture or dislocation. Soft tissue swelling about the third finger most pronounced at the PIP joint. The joint spaces throughout the hand and wrist are fairly well-maintained save for mild first MCP joint space narrowing. XR/XR hand wrist RT IMPRESSION: 1. No acute fracture or dislocation identified at either hand or wrist. 2. Soft tissue swelling about the left third finger PIP joint. 3. Healed fracture deformities of the left thumb proximal phalanx and right fifth metacarpal. 4. Mild left first MCP joint osteoarthritis.
--- NOTE | ~2022-08-09 | XR_ITS ---
EXAMINATION: XR hand wrist RT, XR hand wrist LT CLINICAL INFORMATION: Reason for Exam Right wrist pain after fall COMPARISON: Right hand radiographs 12/09/2021 TECHNIQUE: 3 views both hands and scaphoid views both wrists FINDINGS: Right hand/wrist: Mild deformity of the fifth metacarpal consistent with prior healed fracture. No acute fracture or dislocation. Prominent dorsal proliferative bone/carpal bossing at the dorsal aspect of the third carpometacarpal joint again noted. The joint spaces throughout the hand and wrist appear maintained. No osteophytes or erosions. Left hand/wrist: Healed fracture deformity of the thumb proximal phalanx. Mild deformity with chronic proliferative bone at the radial head/neck of the first metacarpal consistent with remote healed injury. No acute fracture or dislocation. Soft tissue swelling about the third finger most pronounced at the PIP joint. The joint spaces throughout the hand and wrist are fairly well-maintained save for mild first MCP joint space narrowing. XR/XR hand wrist LT IMPRESSION: 1. No acute fracture or dislocation identified at either hand or wrist. 2. Soft tissue swelling about the left third finger PIP joint. 3. Healed fracture deformities of the left thumb proximal phalanx and right fifth metacarpal. 4. Mild left first MCP joint osteoarthritis.
[2022-08-09 15:52] VITALS: BP 147/78; PULSE 100; RESP 18; TEMP 36.7; O2SAT 98; BMI 22.6
--- NOTE | 2022-08-09 15:54 | ED_ITS ---
HPI - General Adult General Chief complaint: Extremity Injury, Upper Stated complaint: wrist and finger injury Time Seen by Provider: 08/09/22 16:52 Source: patient Mode of arrival: ambulatory Limitations: no limitations History of Present Illness HPI narrative: 47 yold male presents to the ED for left middle finger pain and right wrist pain after falling on both outstreched hands yesterday while skating. no head trauma or any other physical complaints. Related Data Previous Rx's Medication Instructions Recorded albuterol sulfate 90 mcg/actuation 2 puff inhalation Q6H PRN 01/10/21 aerosol inhaler (ProAir HFA) shortness of breath or wheezing #8.5 grams prednisone 20 mg tablet 40 mg PO DAILY 5 days #10 tabs 01/10/21 albuterol sulfate 2.5 mg/3 mL 2.5 mg (3 mL) inhalation Q4-6H PRN 02/02/21 (0.083 %) solution for nebulization shortness of breath or wheezing #90 mL albuterol sulfate 90 mcg/actuation 2 puff inhalation Q4-6H PRN 02/02/21 aerosol inhaler (ProAir HFA) shortness of breath or wheezing #8.5 grams doxycycline hyclate 100 mg capsule 100 mg PO BID #20 caps 02/02/21 nebulizers (Compact Ultrasonic #1 ea 02/02/21 Nebulizer) prednisone 20 mg tablet 40 mg PO DAILY #10 tabs 02/02/21 acetaminophen 500 mg tablet 500 mg PO Q6H PRN pain or fever 03/08/21 (Tylenol Extra Strength) #20 tabs cephalexin 500 mg capsule 500 mg PO QID 7 days #28 caps 03/08/21 doxycycline hyclate 100 mg tablet 100 mg PO BID 7 days #14 tabs 03/08/21 naproxen 500 mg tablet 500 mg PO BID PRN pain 10 days #20 03/08/21 tabs naproxen 500 mg tablet 500 mg PO BID PRN pain 10 days #20 08/09/22 tabs prednisone 20 mg tablet 40 mg PO DAILY 5 days #10 tabs 08/09/22 Allergies Allergy/AdvReac Type Severity Reaction Status Date / Time No Known Allergies Allergy Verified 08/09/22 15:52 Review of Systems Review of Systems: left middle finger pain and right wirst pain Yes all other systems are reviewed and are negative PMFSH Past Medical History Medical History Asthma Social History Social History Advance Directives: No Advance Directives Information Provided: Yes Physical Exam ED Vital Signs: Vital Signs - 24 hr 08/09/22 15:52 Temperature 98.0 F Pulse Rate 100 Respiratory Rate 18 Blood Pressure 147/78 H Pulse Oximetry 98 Oxygen Delivery Method Room Air BMI result Body Mass Index 22.6 Const General: cooperative, healthy appearing, comfortable, no acute distress, well developed, alert, awake and Physically active Orientation/consciousness: oriented to person, oriented to place, oriented to ti me and patient oriented x3 HENMT Head: Yes normal to inspection, Yes No palpable skull fracture present, Yes normocephalic, Yes atraumatic and No abrasion Eyes General: appearance normal, both eyes and all related structures Neck Neck: Yes normal visual inspection, Yes full ROM, Yes no lymphadenopathy, Yes no meningeal signs, Yes trachea midline, Yes supple, No anterior neck swelling and No tender Chest Chest palpation & inspection: normal inspection of the chest and normal palpation of entire chest wall Resp Effort & Inspection: normal respiratory effort and able to speak in complete sentences Cardio Jugular venous distension: no JVD Heart sounds: S1 normal heart sound present and S2 normal heart sound present GI Inspection: Yes normal to inspection and No abdominal wall ecchymosis Palpation (GI): Soft to palpation, not firm, nontender, no guarding and not rigid General: No CVA tenderness and Yes no CVA tenderness Back/Spine/Pelvis Back: no CVA tenderness, No CVA tenderness and No back tenderness Skin General skin exam: no rashes or lesions noted and elasticity normal Neuro General: oriented to person, oriented to place, oriented to time, patient oriented x3, gait normal, tone normal, moves all extremities, Normal light touch and pain sensation, no meningeal signs, no focal motor deficits, CN's II-XI intact bilaterally, normal sensation to monofilament and deep tendon reflexes 2+ bilaterally Extrem General: Yes normal to inspection and Yes full ROM Hand/finger images: 1. positive for tenderness and slight swelling. negative for ecchymosis, redness, deformity, or crepitus. Motor, neuro, and vascular exam is intact 2. positive for tenderness. negative for ecchymosis, redness, deformity, or cr epitus. Motor, neuro, and vascular exam is intact. Psych Appearance: grossly normal, well kempt and not disheveled Course Course Course Narrative: RME: 47 yold male presents to the ED for left middle finger pain and right wrist pain after falling unto both outstretched hand yesterday while skating. Xrays ordered Reevaluation(s) Reevaluation #1: Xrays normal. Discharged with pain meds Time: 16:54 Medical Decision Making Medical Decision Making [facility] Narrative: Refer to course and re-evaluation Discharge Plan Discharge Clinical Impression: Finger sprain, Sprain of wrist, right Patient Disposition: Home, Self-Care Instructions: Finger Sprain (ED), Wrist Sprain (ED) Additional Instructions: Your images came back negative for fracture. You will be discharged with pain medication. Please follow-up with the primary care provider. Return to the ED for any swelling, redness, bluish black discoloration, red streaks, coldness, hotness, fever, chills, or any other concerning symptoms. Prescriptions: New naproxen 500 mg tablet 500 mg PO BID PRN (Reason: pain) 10 Days Qty: 20 0RF prednisone 20 mg tablet 40 mg PO DAILY 5 Days Qty: 10 0RF No Action prednisone 20 mg tablet 40 mg PO DAILY 5 Days Qty: 10 0RF albuterol sulfate [ProAir HFA] 90 mcg/actuation HFA aerosol inhaler 2 puff inhalation Q6H PRN (Reason: shortness of breath or wheezing) Qty: 8.5 0RF albuterol sulfate [ProAir HFA] 90 mcg/actuation HFA aerosol inhaler 2 puff inhalation Q4-6H PRN (Reason: shortness of breath or wheezing) Qty: 8.5 0RF albuterol sulfate 2.5 mg /3 mL (0.083 %) solution for nebulization 2.5 mg inhalation Q4-6H PRN (Reason: shortness of breath or wheezing) Qty: 90 0RF prednisone 20 mg tablet 40 mg PO DAILY Qty: 10 0RF doxycycline hyclate 100 mg capsule 100 mg PO BID Qty: 20 0RF (DME) Compact Ultrasonic Nebulizer Misc See Rx Instructions .ROUTE .MEDSUPPLY Qty: 1 0RF Rx Instructions: As directed acetaminophen [Tylenol Extra Strength] 500 mg tablet 500 mg PO Q6H PRN (Reason: pain or fever) Qty: 20 0RF cephalexin 500 mg capsule 500 mg PO QID 7 Days Qty: 28 0RF doxycycline hyclate 100 mg tablet 100 mg PO BID 7 Days Qty: 14 0RF naproxen 500 mg tablet 500 mg PO BID PRN (Reason: pain) 10 Days Qty: 20 0RF Stand Alone Forms: Work/School Release Interventions: ED Discharge Assessment Last Done: 08/09/22 16:58 Discharge Date/Time: 08/09/22 16:59 Print Language: Yoruba
== END 2022-08-09 16:59 | disposition home or self-care (01) ==
PROVIDERS: Emergency Provider Internal Medicine; PCP Physician Assistant
DX: S63.613A Unspecified sprain of left middle finger, initial encounter (principal); S63.501A Unspecified sprain of right wrist, initial encounter; W01.0XXA Fall on same level from slipping, tripping and stumbling without subsequent striking against object, initial encounter; Y93.9 Activity, unspecified; Y92.9 Unspecified place or not applicable; Y99.9 Unspecified external cause status; Z79.899 Other long term (current) drug therapy
CPT/HCPCS: 73110; 73130; 99282; 99284

== ENCOUNTER 2022-08-19 23:57 | Emergency (ER) | payer OTHER, SELFPAY ==
--- NOTE | ~2022-08-19 | XR_ITS ---
EXAMINATION: XR RIBS, RIGHT CLINICAL INFORMATION: Injury, pain COMPARISON: 02/02/2021 TECHNIQUE: 3 views of the right ribs were obtained. FINDINGS: There are slightly displaced fractures of the lateral right seventh, eighth, and ninth ribs. The lungs are clear with no focal consolidation. No evidence of pneumothorax, pulmonary edema, or pleural effusions. The cardiomediastinal contour is unremarkable.. XR/XR ribs RT min 3V w [id number] IMPRESSION: Slightly displaced fractures of the lateral right seventh, eighth, and ninth ribs.
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
[2022-08-20 00:15] VITALS: BP 122/72; PULSE 79; RESP 20; TEMP 36.3; O2SAT 98; BMI 24.2
[2022-08-20 01:50] VITALS: BP 121/70; PULSE 67; RESP 18; TEMP 37; O2SAT 97
[2022-08-20 01:55] VITALS: RESP 18
[2022-08-20] MEDS: Morphine Sulfate 10 MG/ML CARTRIDGE IM (01:55)
[2022-08-20 02:29] LABS: Basophils Percent Auto 0.2 % (0-2); Hemoglobin 12.5 g/dl (14.0-18.0); PLT ABN DIST 1; SCAN SMEAR FLAG 1
[2022-08-20 02:31] LABS: Eosinophils Absolute Auto 0.1 X10*3/uL (0.0-0.4); Eosinophils Percent Auto 1.1 % (0-4); Hematocrit 39.7 % (42.0-52.0); Imm Gran Abs Auto 0.03 X10*3/uL (0.00-0.03); Imm Gran Pct Auto 0.4 % (0.0-0.4); Lymphocytes Absolute Auto 1.8 X10*3/uL (1.2-4.9); Mean Corpuscular HGB Conc 31.5 g/dl (31.0-36.0); Mean Corpuscular Hemoglobin 19.8 pg (27.0-33.0); Monocytes Absolute Auto 0.7 X10*3/uL (0.1-1.2); Monocytes Percent Auto 8.5 % (2-11); Neutrophils Absolute Auto 5.6 x10*3/uL (2.0-8.3); Neutrophils Percent Auto 67.8 % (45-73); Platelet Count 152 X10*3/uL (160-400); Red Cell Distribution Width 17.2 % (11.0-16.0); White Blood Count 8.2 X10*3/uL (4.8-10.8)
[2022-08-20 02:33] LABS: MANUAL DIFF FLAG NO
[2022-08-20 02:46] LABS: Anion Gap 12 (12-20); Blood Urea Nitrogen 10 mg/dL (9-16); Carbon Dioxide 24 mmol/L (22-29); Chloride 106 mmol/L (96-108); Creatinine Clr Calc Pharmacy 103.3; Estimated Glomerular Filt Rate > 60; Glucose Random 98 mg/dL (60-115); Potassium 4.1 mmol/L (3.3-5.1); Sodium 138 mmol/L (135-145)
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
[2022-08-20] MEDS: iohexoL 350 MG/ML 100 ML INFUS..BTL 85 ML IV (03:13)
[2022-08-20 04:02] VITALS: BP 116/64; PULSE 69; RESP 18; TEMP 36.7; O2SAT 96
[2022-08-20] MEDS: oxyCODONE HCl Immed Release 5 MG TABLET 10 MG PO (04:18)
[2022-08-20] MEDS: Ibuprofen 600 MG TABLET PO (04:19)
== END 2022-08-20 04:45 | disposition home or self-care (01) ==
PROVIDERS: Emergency Provider Internal Medicine; PCP Physician Assistant
DX: S22.43XA Multiple fractures of ribs, bilateral, initial encounter for closed fracture (principal); R07.81 Pleurodynia; R10.9 Unspecified abdominal pain; Y29.XXXA Contact with blunt object, undetermined intent, initial encounter; Y93.9 Activity, unspecified; Y92.9 Unspecified place or not applicable; Y99.9 Unspecified external cause status; Z79.899 Other long term (current) drug therapy
CPT/HCPCS: 36415; 71101; 74177; 80048; 85025; 96372; 99284; J2270; Q9967

== ENCOUNTER 2022-09-04 18:21 | Emergency (ER) | payer OTHER, SELFPAY ==
--- NOTE | ~2022-09-04 | CT_ITS ---
EXAMINATION: CT CHEST WITHOUT CONTRAST CLINICAL INFORMATION: hx of rib fracture c persistent pain . COMPARISON: 08/20/2022 CT scan. TECHNIQUE: Multidetector volumetric imaging was performed from the thoracic inlet through the lung bases without contrast. Sagittal and coronal reformatted images were obtained on the technologist workstation. Soft tissue and lung algorithms evaluated. Thick slab MIP images were performed to increase nodule conspicuity. This CT examination was performed using dose optimization techniques as appropriate, variously including the following: *Automated exposure control *Adjustment of mA and/or kV according to patient size (this includes techniques or standardized protocols for targeted exams where dose is matched to indication/reason for exam; i.e. extremities or head) *Use of iterative reconstruction technique DLP: 306 mGy-cm. FINDINGS: LUNG: Irregularly shaped 4 mm pulmonary nodule in the posterior lateral aspect of the left upper lobe on axial image . No other suspicious pulmonary nodules. No pneumothorax. Mild atelectatic changes in the lateral aspect of the right lung base abutting the right-sided rib fractures. MEDIASTINUM: The mediastinum is normal. The central vascular structures are unremarkable. No hilar or mediastinal lymphadenopathy. CORONARY ARTERY CALCIFICATION: Absent PERICARDIUM/PLEURA: No significant effusion. No pleural mass or thickening. THYROID/VISUALIZED LOWER NECK: Unremarkable. CHEST WALL/AXILLA: Newly displaced fractures of the lateral right seventh eighth, and ninth ribs. These have become slightly more displaced from the prior 08/20/2022 study. VISUALIZED UPPER ABDOMEN: Unremarkable. BONES: Unremarkable CT/CT chest wo IV con IMPRESSION: 1. Slightly more displaced fractures of the lateral right seventh, eighth, and ninth ribs. These have become slightly more displaced from the prior 08/20/2022 study. There is mild atelectatic changes in the lateral aspect of the right lung base abutting the rib fractures. No pneumothorax. There is a 4 mm irregularly shaped pulmonary nodule in the posterior lateral aspect of the left upper lobe. Etiology of this is uncertain. According to the UPDATED 2017 Fleischner Society recommendations, the advised follow-up imaging for solid nodules < 6 mm is: LOW RISK PATIENT: No routine follow-up. HIGH RISK PATIENT: Optional CT at 12 months.
[2022-09-04 19:42] VITALS: BP 142/85; PULSE 80; RESP 20; TEMP 36.2; O2SAT 99; BMI 22.6
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
--- NOTE | 2022-09-04 19:44 | ECG_ITS ---
Test Reason : SOB Blood Pressure : / mmHG Vent. Rate : 076 BPM Atrial Rate : 076 BPM P-R Int : 116 ms QRS Dur : 086 ms QT Int : 364 ms P-R-T Axes : 075 033 029 degrees QTc Int : 409 ms Normal sinus rhythm Normal ECG No previous ECGs available Referred By: Hyacinth Ramos Electronically Signed By:WENDY MCCLELLAN MD
[2022-09-04 20:24] LABS: Hemoglobin 12.9 g/dl (14.0-18.0); Imm Gran Abs Auto 0.02 X10*3/uL (0.00-0.03); Imm Gran Pct Auto 0.3 % (0.0-0.4); MANUAL DIFF FLAG SCAN; SCAN SMEAR FLAG 1
[2022-09-04 20:25] LABS: Basophils Percent Auto 0.5 % (0-2); Eosinophils Absolute Auto 0.2 X10*3/uL (0.0-0.4); Eosinophils Percent Auto 2.5 % (0-4); Hematocrit 40.3 % (42.0-52.0); Lymphocytes Absolute Auto 1.7 X10*3/uL (1.2-4.9); Lymphocytes Percent Auto 28.6 % (20-40); Mean Corpuscular Hemoglobin 20.2 pg (27.0-33.0); Monocytes Absolute Auto 0.5 X10*3/uL (0.1-1.2); Monocytes Percent Auto 8.6 % (2-11); Neutrophils Absolute Auto 3.6 x10*3/uL (2.0-8.3); Neutrophils Percent Auto 59.5 % (45-73); Platelet Count 175 X10*3/uL (160-400); Red Blood Count 6.38 X10*6/uL (4.60-5.80); Red Cell Distribution Width 17.3 % (11.0-16.0); White Blood Count 6.1 X10*3/uL (4.8-10.8)
[2022-09-04 20:26] LABS: Mean Corpuscular Volume 63.2 fL (80.0-98.0)
[2022-09-04 20:29] LABS: PLT ABN DIST 1
[2022-09-04 20:39] LABS: Alanine Aminotransferase 13 U/L (0-40); Alkaline Phosphatase 85 U/L (39-117); Anion Gap 13 (12-20); Aspartate Amino Transferase 14 U/L (5-37); Bilirubin Total 0.3 mg/dL (0.0-1.0); Blood Urea Nitrogen 14 mg/dL (9-16); Calcium 9.2 mg/dL (8.4-10.2); Carbon Dioxide 24 mmol/L (22-29); Chloride 110 mmol/L (96-108); Estimated Glomerular Filt Rate > 60; Glucose Random 106 mg/dL (60-115); Magnesium 1.8 mg/dL (1.6-2.6); Potassium 4.4 mmol/L (3.3-5.1); Sodium 143 mmol/L (135-145); Total Protein 6.6 g/dL (6.5-8.0)
[2022-09-04 20:44] LABS: SLIDE REVIEW VERIFIED
[2022-09-05 02:16] VITALS: BP 113/65; PULSE 62; RESP 17; TEMP 36.6; O2SAT 96
[2022-09-05] MEDS: oxyCODONE HCl Immed Release 5 MG TABLET PO (03:10)
--- NOTE | 2022-09-05 03:12 | PC.NURSE ---
patient ambulatory with steady gait. no apparent distress, no respiratory distress.
== END 2022-09-05 03:14 | disposition home or self-care (01) ==
PROVIDERS: Physician Assistant Medical; Emergency Provider Emergency Medicine
DX: M96.A3 Multiple fractures of ribs associated with chest compression and cardiopulmonary resuscitation (principal); R06.02 Shortness of breath; R07.89 Other chest pain; M54.6 Pain in thoracic spine; Z79.899 Other long term (current) drug therapy
CPT/HCPCS: 36415; 71250; 80053; 83735; 85025; 93005; 99284